=== PATIENT | male | born 1940 | race Caucasian/White ===

== ENCOUNTER 2016-04-22 15:08 | Inpatient (IN) | payer MEDICARE, OTHER ==
[~2016-04-22] VITALS: Ht 170.2 cm; Wt 122.9 kg
[~2016-04-22 15:08] MED LIST: ASPIRIN E.C. 8181 MG PO; CELEBREX 200MG200 MG PO; CIPRO 500MG TA500 MG PO; COUMADIN 1MG1 MG/TAB PO; FOLIC ACID0.4 MG PO; HYTRIN 1MG C1 MG/CAP PO; IRON324 M1 PO; LISINOPRIL20 MG PO; MAREPA1200 MG PO; NORCO 325 MG-7.1 TAB PO; OXY IR5 MG PO; SIMVASTATIN10 MG PO; TERAZOSIN1 MG PO; THERAPEUTIC VIT1 CAP PO; VITAMIN C500 MG PO; ZESTRIL 20MG TA20 MG PO; ZOCOR 10MG10 MG PO
[2016-05-12] VITALS (10 sets, daily range): BP systolic 107–148; BP diastolic 61–91; PULSE 90–113; TEMP 97.7–98.7
[2016-05-12] MEDS ORDERED: HYTRIN 2MG CAPSU2 MG PO (10:34)
[2016-05-12] MEDS ORDERED: LASIX 20MG TABL20 MG PO (10:35)
[2016-05-12] MEDS ORDERED: MASON NATURAL1200 MG PO (10:37)
[2016-05-13 02:00] VITALS: BP 117/61; PULSE 90; TEMP 98.3
[2016-05-13 06:06] VITALS: BP 109/59; PULSE 84; TEMP 97.8
[2016-05-13 06:46] LABS: BASO % 0.1 % (0.0-2.0); EOS % 0.1 % (0-4.0); GRAN # 7.9 (1.4-6.5); GRAN % 86.9 % (42.2-75.2); HEMATOCRIT 41.3 % (42.0-52.0); HEMOGLOBIN 13.4 g/dl (13.5-18.0); LYMPH # 0.4 (1.2-3.4); LYMPH % 4.8 % (20.0-51.0); MEAN CELL VOLUME 92 fl (80.0-100.0); MEAN CORPUSCULAR HEMOGLOBIN 30 pg (27.0-31.0); MEAN CORPUSCULAR HGB CONC 32 g/dl (33.0-37.0); MEAN PLATELET VOLUME 11.5 fl (7.4-10.4); MONO # 0.7 (0.1-0.6); MONO % 7.3 % (1.7-9.3); PLATELET COUNT 150 K/mm3 (130-400); RED BLOOD COUNT 4.48 M/mm3 (4.20-5.60); REDCELL DISTRIBUTION WIDTH-CV 13.1 % (11.5-14.5); WHITE BLOOD COUNT 9.1 K/mm3 (4.8-10.8)
[2016-05-13 07:12] LABS: CREATININE, serum 1.11 mg/dL (0.66-1.25); POTASSIUM 4.4 mmol/L (3.4-5.0)
[2016-05-13 09:27] VITALS: BP 122/68; PULSE 77; TEMP 97.9
[2016-05-13 13:26] VITALS: BP 138/64; PULSE 90; TEMP 97.9
[2016-05-13 18:09] VITALS: BP 155/81; PULSE 103; TEMP 98.9
[2016-05-13 21:13] VITALS: BP 139/66; PULSE 97; TEMP 97.9
[2016-05-14 02:32] VITALS: BP 136/57; PULSE 73; TEMP 98.2
[2016-05-14 05:00] VITALS: BP 131/51; PULSE 69; TEMP 98.5
[2016-05-14 09:12] VITALS: BP 104/88; PULSE 106; TEMP 97.1
[2016-05-14 13:28] VITALS: BP 125/96; PULSE 106; TEMP 98.1
[2016-05-14 17:09] VITALS: BP 137/76; PULSE 96; TEMP 98.3
[2016-05-14 21:56] VITALS: BP 133/65; PULSE 98; TEMP 98.9
[2016-05-15 05:36] VITALS: BP 123/71; PULSE 89; TEMP 98.4
[2016-05-15 08:12] VITALS: BP 132/59; PULSE 95; TEMP 97.2
[2016-05-15 11:00] VITALS: BP 137/75; PULSE 90; TEMP 97.3
== END 2016-05-15 13:30 | disposition home or self-care (01) | DRG 657 ==
LOC: INPTSU 05-12 09:30 → SURG 05-12 12:00
PROVIDERS: Urology
PROC: 8E0W4CZ Robotic Assisted Procedure of Trunk Region, Percutaneous Endoscopic Approach (ICD-10-PCS; 2016-05-12)
PROC: 0TB14ZZ Excision of Left Kidney, Percutaneous Endoscopic Approach (ICD-10-PCS; principal; 2016-05-12 12:00)
DX: C64.2 Malignant neoplasm of left kidney, except renal pelvis (principal); Z68.41 Body mass index [BMI] 40.0-44.9, adult; E66.9 Obesity, unspecified
CPT/HCPCS: A4315; A9284; C1713; J0690; J1100; J1170; J1885; J2270; J2370; J2405; J2704; J3010; J7050; J7120

== ENCOUNTER → 2016-08-11 | Outpatient (CLI) | payer MEDICARE, OTHER ==
[~2016-08-11] MED LIST changes: +HYTRIN 2MG CAPSU2 MG PO; +LASIX 20MG TABL20 MG PO; +MASON NATURAL1200 MG PO
== END ==
LOC: COL.RAD 07:06
DX: Z85.520 Personal history of malignant carcinoid tumor of kidney (principal); N40.0 Benign prostatic hyperplasia without lower urinary tract symptoms; Z90.5 Acquired absence of kidney; Z95.828 Presence of other vascular implants and grafts
CPT/HCPCS: Q9967

== ENCOUNTER → 2016-12-21 | Outpatient (CLI) | payer MEDICARE, OTHER ==
[2016-12-21 10:33] LABS: CALCIUM 9.9 mg/dL (8.4-10.2); CREATININE, serum 1.08 mg/dL (0.66-1.25); POTASSIUM 4.5 mmol/L (3.4-5.0)
== END ==
LOC: COL.RAD 09:37
PROVIDERS: Urology
DX: Z01.812 Encounter for preprocedural laboratory examination (principal); C7A.093 Malignant carcinoid tumor of the kidney
CPT/HCPCS: Q9967